=== PATIENT | female | born 1985 | race Caucasian/White ===

== ENCOUNTER 2017-03-08 19:42 | Emergency (ER) | payer OTHER ==
[~2017-03-08] VITALS: Ht 157.5 cm; Wt 59.0 kg
[~2017-03-08 19:42] MED LIST: CEPH-263 PO; HYDR-79 PO; POLY10DR OD
[2017-03-08 20:16] LABS: BILIRUBIN,URINE NEG (NEG); CLARITY,URINE CLOUDY; COLOR,URINE YELLOW; GLUCOSE,URINE NEG (NEG); NITRITE,URINE NEG (NEG); UROBILINOGEN,URINE 0.2 mg/dL (0.2 mg/dL)
[2017-03-08 20:24] LABS: BACTERIA,URINE MOD /HPF (0-FEW); SQUAMOUS EPITHELIAL CELL,UR MOD /LPF
[2017-03-08 20:30] VITALS: BP 103/44
[2017-03-08] MEDS ORDERED: FLUC150T PO (20:38)
[2017-03-08] MEDS ORDERED: CIPR500T PO (20:38)
[2017-03-08] MEDS ORDERED: PHEN-318 PO (20:38)
[2017-03-08] MEDS ORDERED: ACET325T9 PO (20:38)
--- NOTE | 2017-03-08 20:38 | PHYS DOC ---
Past History Past Medical History: Anxiety, Depression Past Surgical History: Other Additional Past Surgical Histo: breast augmentation Smoking: Cigarettes, Less than 1pk/day Alcohol Use: None Drug Use: None Adult General Chief Complaint Chief Complaint: PAIN ON URINATION [facility] HPI This is a pleasant otherwise healthy 31-year-old female who presents with dysuria urgency or frequency in spite of murmur intermittently for last 2 weeks. She came in today because the pain has also cause a little bit of hematuria that she was worried about. She has no passage of clot she doubts she is since she is on Depo-Provera although she is sexually active. She denies any other discharge or history of STD exposure. Patient denies any fever , back pain, chills, abdominal pain. She denies any headache or other systemic complaint. Patient's reason for not coming on earlier than 2 weeks ago is because she is on a very busy work schedule. She typically does not have time to get to the emergency department or another clinic the time she spit home with her child. Review of Systems Review of Systems Constitutional: Denies fever or chills [] Eyes: Denies change in visual acuity, redness, or eye pain [] HENT: Denies nasal congestion or sore throat [] Respiratory: Denies cough or shortness of breath [] Cardiovascular: No additional information not addressed in HPI [] GI: Denies abdominal pain, nausea, vomiting, bloody stools or diarrhea [] : Complains of dysuria urgency frequency and hematuria. Musculoskeletal: Denies back pain or joint pain [] Integument: Denies rash or skin lesions [] Neurologic: Denies headache, focal weakness or sensory changes [] Endocrine: Denies polyuria or polydipsia [] Allergies Allergies Allergies Coded Allergies Type Severity Reaction Last Updated Verified No Known Drug Allergies 01/28/15 No Physical Exam Physical Exam Vital signs reviewed all within normal limits. Constitutional: Well developed, well nourished, no acute distress, non-toxic appearance. [] Cardiovascular:Heart rate regular rhythm, no murmur [] Lungs & Thorax: Bilateral breath sounds clear to auscultation [] Abdomen: Bowel sounds normal, soft, no tenderness, no masses, no pulsatile masses. [] Back: No tenderness, no CVA tenderness. [] Neurologic: Alert and oriented X 3, Psychologic: Affect normal, judgement normal, mood normal. [] Current Patient Data Vital Signs Vital Signs Date Time Temp Pulse Resp B/P (MAP) Pulse Ox O2 Delivery O2 Flow Rate FiO2 03/08/17 19:42 98.2 95 18 98 Room Air Lab Results Laboratory Tests Test 03/08/17 19:46 03/08/17 20:09 Urine Collection Type Void Urine Color Yellow Urine Clarity Cloudy Urine pH 5.5 Urine Specific [place] >=1.030 Urine Protein Neg (NEG-TRACE) Urine Glucose (UA) Neg mg/dL (NEG) Urine Ketones (Stick) Neg mg/dL (NEG) Urine Blood Mod (NEG) Urine Nitrite Neg (NEG) Urine Bilirubin Neg (NEG) Urine Urobilinogen Dipstick 0.2 mg/dL (0.2 mg/dL) Urine Leukocyte Esterase Trace (NEG) Urine RBC 6-10 /HPF (0-2) Urine WBC 5-10 /HPF (0-4) Urine Squamous Epithelial Cells Mod /LPF Urine Bacteria Mod /HPF (0-FEW) Urine Mucus Mod /LPF POC Urine HCG, Qualitative hcg negative (Negative) EKG EKG [] Radiology/Procedures Radiology/Procedures [] Course & Med Decision Making Course & Med Decision Making Pertinent Labs and Imaging studies reviewed. (See chart for details) patient's urinalysis was reevaluated it revealed white blood cells, this finding in and of itself with her dysuria urgency and frequency would make me want to treat her as a clear UTI. Unfortunately she has also an epithelial contamination to her symptoms. She is not wanting to supply a new sample so I will treat her empirically with a course of ciprofloxacin. She is not actively . And she would also asked for dose of Diflucan as she typically gets y[place] infections with doses of antibiotics. At this point I doubt ectopic , ovarian cyst or torsion given duration of symptoms. Doubt kidney stones, pyelonephritis or cervicitis without discharge. Impression: Dysuria hematuria UTI. Disposition: PCP follow-up for routine care supplied a course of ciprofloxacin and Diflucan Pyridium and Tylenol. [] Dragon Disclaimer Dragon Disclaimer This chart was dictated in whole or in part using Voice Recognition software in a busy, high-work load, and often noisy Emergency Department environment. It may contain unintended and wholly unrecognized errors or omissions. Departure Departure: Impression: Primary Impression: UTI (urinary tract infection) Disposition: 01 HOME, SELF-CARE Condition: GOOD Referrals: KALIA MTZ JR, MD (PCP) Patient Instructions: Urinary Frequency, Urinary Tract Infection Additional Instructions: I would encourage her to quit smoking for your health and safety but the safety of your child. Please return for any new or increasing abdominal pain, increased frequency urgency and dysuria despite treatment or if you have any questions or concerns. Please use the Diflucan as prescribed after your course of antibiotics if you in fact develop a yeast infection this return for any new symptoms that he would like me to evaluate. Scripts Acetaminophen (TYLENOL) 325 Mg Tablet 1-2 TAB PO QID, #30 TAB 2 Refills Prov: CARLOS TORRE MD 03/08/17 Phenazopyridine Hcl (PYRIDIUM) 200 Mg Tablet 200 MG PO TID for 5 Days, #15 TAB Prov: CARLOS TORRE MD 03/08/17 Ciprofloxacin Hcl (CIPROFLOXACIN HCL) 500 Mg Tablet 1 TAB PO BID, #20 TAB Prov: CARLOS TORRE MD 03/08/17 Fluconazole (DIFLUCAN) 150 Mg Tablet 1 TAB PO ONCE, #1 TAB 1 Refill Prov: CARLOS TORRE MD 03/08/17 CARLOS TORRE MD Mar 08, 2017 20:38
== END 2017-03-08 20:44 | disposition home or self-care (01) ==
LOC: ER 19:42
DX: N39.0 Urinary tract infection, site not specified (principal); F17.210 Nicotine dependence, cigarettes, uncomplicated
CPT/HCPCS: 81001; 81025; 87086; 99284

== ENCOUNTER 2017-04-07 12:00 | Emergency (ER) | payer OTHER ==
[~2017-04-07] VITALS: Ht 157.5 cm; Wt 54.4 kg
[~2017-04-07 12:00] MED LIST changes: +ACET325T9 PO; +CIPR500T PO; +FLUC150T PO; +PHEN-318 PO
[2017-04-07 12:13] VITALS: BP 112/79
[2017-04-07] MEDS ORDERED: IBUPROFEN 600 MG TABLET. PO ONE (13:00)
[2017-04-07] MEDS ORDERED: CYCLOBENZAPRINE 10 MG TABLET. PO ONE (13:00)
[2017-04-07] MEDS ORDERED: HYDROcodone/APAP 5/325MG 1 TAB TABLET PO ONE (13:00)
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
== END 2017-04-07 12:42 | disposition home or self-care (01) ==
LOC: ER 12:00
DX: S06.0X0A Concussion without loss of consciousness, initial encounter (principal); S13.4XXA Sprain of ligaments of cervical spine, initial encounter; F17.210 Nicotine dependence, cigarettes, uncomplicated; V43.52XA Car driver injured in collision with other type car in traffic accident, initial encounter; Y93.89 Activity, other specified; Y99.8 Other external cause status; Y92.89 Other specified places as the place of occurrence of the external cause
CPT/HCPCS: 99284

== ENCOUNTER 2017-06-07 14:45 | Emergency (ER) | payer OTHER ==
[~2017-06-07] VITALS: Ht 160 cm; Wt 59.9 kg
--- NOTE | 2017-06-07 15:12 | ED.ADGEN ---
Past History Past Medical History: Anxiety Past Medical History Frequent urinary tract infections Past Surgical History: Other Additional Past Surgical Histo: breast augmentation Smoking: Cigarettes, Less than 1pk/day Alcohol Use: None Drug Use: None Adult General HPI HPI This is a pleasant 32-year-old female who presents emergency Department with 2.5 weeks of diarrhea. 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 The patient reports she's been having nausea with small amounts of emesis up into her mouth with a very foul taste. Patient also reports reports frequent episodes of belching. The patient reports that she's been on frequent antibiotics for urinary tract infections. The patient reports she was just recently on ciprofloxacin. The patient currently rates her abdominal pain is 9- 10 distress that is periumbilical and suprapubic. The patient does not have a primary care physician. The patient reports that the [facility] centers where she gets her medications prescribed. The patient's currently on Depo-Provera that she does not have regular periods. The patient's mother to medications are clonazepam and lorazepam. Review of Systems Review of Systems Constitutional: Denies fever or chills [] Eyes: Denies change in visual acuity, redness, or eye pain [] HENT: Denies nasal congestion or sore throat [] Respiratory: Denies cough or shortness of breath [] Cardiovascular: No additional information not addressed in HPI [] GI: The patient complains of abdominal pain and nausea the patient reports multiple episodes of emesis in her mouth. The patient reports multiple episodes of diarrhea but with greater than 10 in the past 24 hours the patient denies hematemesis hematochezia and melena.[] : Denies dysuria or hematuria [] Musculoskeletal: Denies back pain or joint pain [] Integument: Denies rash or skin lesions [] Neurologic: Denies headache, focal weakness or sensory changes [] Endocrine: Denies polyuria or polydipsia [] Current Medications Current Medications Current Medications Medications (Trade) Dose Ordered Sig/Julio Start Time Stop Time Status Last Admin Dose Admin Morphine Sulfate (Morphine 4mg Syringe) 4 mg PRN Q15MIN PRN 06/07/17 15:15 06/08/17 15:14 06/07/17 15:40 4 MG Ondansetron HCl (Zofran) 8 mg 1X ONCE 06/07/17 15:15 06/07/17 15:16 DC 06/07/17 15:15 8 MG Sodium Chloride 1,000 ml @ 1,000 mls/hr 1X ONCE 06/07/17 15:15 06/07/17 16:14 DC 06/07/17 15:15 1,000 MLS/HR Allergies Allergies Allergies Coded Allergies Type Severity Reaction Last Updated Verified No Known Drug Allergies 04/07/17 No Physical Exam Physical Exam Constitutional: Well developed, well nourished, no acute distress, non-toxic appearance. [] HENT: Normocephalic, atraumatic, bilateral external ears normal, oropharynx dry , no oral exudates, nose normal. [] Eyes: PERRLA, EOMI, conjunctiva normal, no discharge. [] Neck: Normal range of motion, no tenderness, supple, no stridor. [] Cardiovascular:Heart rate regular rhythm, no murmur [] Lungs & Thorax: Bilateral breath sounds clear to auscultation [] Abdomen: Bowel sounds normal, soft, periumbilical and suprapubic abdominal tenderness without guarding or rebound, no tenderness in McBurney's point, no tenderness in the epigastric region and tenderness along the costal margins bilaterally, no masses, no pulsatile masses. [] Skin: Warm, dry, no erythema, no rash. [] Back: No tenderness, no CVA tenderness. [] Extremities: No tenderness, no cyanosis, no clubbing, ROM intact, no edema. [] Neurologic: Alert and oriented X 3, normal motor function, normal sensory function, no focal deficits noted. [] Psychologic: judgement normal, the patient appears anxious.. [] Current Patient Data Vital Signs Vital Signs Date Time Temp Pulse Resp B/P (MAP) Pulse Ox O2 Delivery O2 Flow Rate FiO2 06/07/17 17:00 54 18 114/62 (79) 95 Room Air 06/07/17 14:45 98.5 Lab Results Laboratory Tests Test 06/07/17 15:20 06/07/17 15:47 White Blood Count 10.9 x10^3/uL (4.0-11.0) Red Blood Count 4.74 x10^6/uL (3.50-5.40) Hemoglobin 14.9 g/dL (12.0-15.5) Hematocrit 43.8 % (36.0-47.0) Mean Corpuscular Volume 92 fL (79-100) Mean Corpuscular Hemoglobin 31 pg (25-35) Mean Corpuscular Hemoglobin Concent 34 g/dL (31-37) Red Cell Distribution Width 13.2 % (11.5-14.5) Platelet Count 228 x10^3/uL (140-400) Neutrophils (%) (Auto) 69 % (31-73) Lymphocytes (%) (Auto) 24 % (24-48) Monocytes (%) (Auto) 5 % (0-9) Eosinophils (%) (Auto) 1 % (0-3) Basophils (%) (Auto) 1 % (0-3) Neutrophils # (Auto) 7.5 x10^3uL (1.8-7.7) Lymphocytes # (Auto) 2.7 x10^3/uL (1.0-4.8) Monocytes # (Auto) 0.5 x10^3/uL (0.0-1.1) Eosinophils # (Auto) 0.1 x10^3/uL (0.0-0.7) Basophils # (Auto) 0.1 x10^3/uL (0.0-0.2) Urine Collection Type Clean catch Urine Color Yellow Urine Clarity Hazy Urine pH 6.5 Urine Specific Emblem 1.020 Urine Protein Neg (NEG-TRACE) Urine Glucose (UA) Neg mg/dL (NEG) Urine Ketones (Stick) Neg mg/dL (NEG) Urine Blood Trace (NEG) Urine Nitrite Neg (NEG) Urine Bilirubin Neg (NEG) Urine Urobilinogen Dipstick 0.2 mg/dL (0.2 mg/dL) Urine Leukocyte Esterase Neg (NEG) Urine RBC 1-2 /HPF (0-2) Urine WBC 1-4 /HPF (0-4) Urine Squamous Epithelial Cells Mod /LPF Urine Bacteria Mod /HPF (0-FEW) Urine Mucus Mod /LPF Sodium Level 139 mmol/L (136-145) Potassium Level 4.5 mmol/L (3.5-5.1) Chloride Level 107 mmol/L (98-107) Carbon Dioxide Level 25 mmol/L (21-32) Anion Gap 7 (6-14) Blood Urea Nitrogen 16 mg/dL (7-20) Creatinine 0.9 mg/dL (0.6-1.0) Estimated GFR (Cockcroft-Gault) 73.5 BUN/Creatinine Ratio 18 (6-20) Glucose Level 108 mg/dL (70-99) H Calcium Level 9.5 mg/dL (8.5-10.1) Total Bilirubin 0.1 mg/dL (0.2-1.0) L Aspartate Amino Transferase (AST) 19 U/L (15-37) Alanine Aminotransferase (ALT) 26 U/L (14-59) Alkaline Phosphatase 100 U/L (46-116) Total Protein 8.1 g/dL (6.4-8.2) Albumin 4.3 g/dL (3.4-5.0) Albumin/Globulin Ratio 1.1 (1.0-1.7) POC Urine HCG, Qualitative hcg negative (Negative) EKG EKG [] Radiology/Procedures Radiology/Procedures [] Course & Med Decision Making Course & Med Decision Making Pertinent Labs and Imaging studies reviewed. (See chart for details) Rechecked the patient at 5:50pm and she reports that her pain and nausea as well as diarrhea are resolved. The patient had no vomiting during her emergency department evaluation. Patient adamant that she can't wait any longer to have a bowel movement for us with a sample for C. difficile. The patient is highly concerned that she may have questioned Fracisco enterocolitis is given her great anxiety. We discussed options for returning with a stool sample versus being rechecked in the emergency department in a number of days. The patient was very happy with both these options. I offered to provide the prescription for metronidazole and treat presumptively. The patient was comfortable with this plan of long list of prescription for Diflucan was also provided so that she can take it at the end of her out of antibiotics to prevent a yeast infection. The patient verbalized the understanding of the need for close outpatient follow -up.[] Final Impression Final Impression Abdominal pain, nausea, vomiting, diarrhea, dehydration, anxiety[] Problems: Dragon Disclaimer Dragon Disclaimer This electronic medical record was generated, in whole or in part, using a voice recognition dictation system. JUDY CROOK MD Jun 07, 2017 15:12
[2017-06-07] MEDS ORDERED: MORPHINE SULFATE 4 MG/ML DISP.SYRIN. IV/SQ PRN (15:15)
[2017-06-07] MEDS ORDERED: IV NORMAL SALINE 1,000ML 1,000 ML IV ONE (15:15)
[2017-06-07] MEDS ORDERED: ONDANSETRON PF 4 MG/2 ML VIAL. IV ONE (15:15)
[2017-06-07 15:37] LABS: BASO # 0.1 x10^3/uL (0.0-0.2); BASO % 1 % (0-3); EOS # 0.1 x10^3/uL (0.0-0.7); EOS % 1 % (0-3); HEMATOCRIT 43.8 % (36.0-47.0); HEMOGLOBIN 14.9 g/dL (12.0-15.5); LYMPH # 2.7 x10^3/uL (1.0-4.8); LYMPH % 24 % (24-48); MEAN CORPUSCULAR HEMOGLOBIN 31 pg (25-35); MEAN CORPUSCULAR HGB CONC 34 g/dL (31-37); MEAN CORPUSCULAR VOLUME 92 fL (79-100); MONO # 0.5 x10^3/uL (0.0-1.1); MONO % 5 % (0-9); NEUT # 7.5 x10^3uL (1.8-7.7); NEUT % 69 % (31-73); PLATELET COUNT 228 x10^3/uL (140-400); RED BLOOD COUNT 4.74 x10^6/uL (3.50-5.40); RED CELL DISTRIBUTION WIDTH 13.2 % (11.5-14.5); WHITE BLOOD COUNT 10.9 x10^3/uL (4.0-11.0)
[2017-06-07 15:48] LABS: BACTERIA,URINE MOD /HPF (0-FEW); BILIRUBIN,URINE NEG (NEG); CLARITY,URINE HAZY; COLOR,URINE YELLOW; GLUCOSE,URINE NEG (NEG); NITRITE,URINE NEG (NEG); SQUAMOUS EPITHELIAL CELL,UR MOD /LPF; UROBILINOGEN,URINE 0.2 mg/dL (0.2 mg/dL)
[2017-06-07 15:52] LABS: ALBUMIN 4.3 g/dL (3.4-5.0); ALBUMIN/GLOBULIN RATIO 1.1 (1.0-1.7); CALCIUM 9.5 mg/dL (8.5-10.1); CREATININE 0.9 mg/dL (0.6-1.0); GFR 73.5; POTASSIUM 4.5 mmol/L (3.5-5.1); TOTAL BILIRUBIN 0.1 mg/dL (0.2-1.0); TOTAL PROTEIN 8.1 g/dL (6.4-8.2)
[2017-06-07 17:00] VITALS: BP 114/62
[2017-06-07] MEDS ORDERED: METR500T PO (17:08)
[2017-06-07] MEDS ORDERED: FLUC150T PO (17:08)
[2017-06-07] MEDS ORDERED: HYDR-971 PO (17:19)
== END 2017-06-07 17:20 | disposition home or self-care (01) ==
LOC: ER 14:45
DX: R10.33 Periumbilical pain (principal); E86.0 Dehydration; R11.2 Nausea with vomiting, unspecified; R19.7 Diarrhea, unspecified; F41.9 Anxiety disorder, unspecified; F17.210 Nicotine dependence, cigarettes, uncomplicated
CPT/HCPCS: 36415; 80053; 81001; 81025; 85025; 87086; 96361; 96374; 96375; 99285; J2270; J2405; J7030

== ENCOUNTER 2018-07-16 15:58 | Emergency (ER) | payer OTHER ==
[~2018-07-16 15:58] MED LIST changes: +HYDR-971 PO; +METR500T PO
[2018-07-16] MEDS ORDERED: KETOROLAC 60 MG/2 ML VIAL. IM ONE (16:45)
[2018-07-16] MEDS ORDERED: HYDR-971 PO (17:00)
[2018-07-16] MEDS ORDERED: CYCL-331 PO (17:00)
[2018-07-16] MEDS ORDERED: NAPR-683 PO (17:00)
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
[2018-07-16 17:24] VITALS: BP 109/61
== END 2018-07-16 17:31 | disposition home or self-care (01) ==
LOC: ER 15:58
DX: S80.02XA Contusion of left knee, initial encounter (principal); S80.01XA Contusion of right knee, initial encounter; S50.02XA Contusion of left elbow, initial encounter; S50.01XA Contusion of right elbow, initial encounter; F17.210 Nicotine dependence, cigarettes, uncomplicated; Z71.6 Tobacco abuse counseling; V98.8XXA Other specified transport accidents, initial encounter; Y93.89 Activity, other specified; Y92.89 Other specified places as the place of occurrence of the external cause; Y99.8 Other external cause status
CPT/HCPCS: 96372; 99283; J1885

== ENCOUNTER 2018-09-16 20:30 | Emergency (ER) | payer OTHER ==
[~2018-09-16 20:30] MED LIST changes: +CYCL-331 PO; +HYDR-1179 PO; +HYDR-3165 PO; -HYDR-79 PO; -HYDR-971 PO; +NAPR-683 PO
[2018-09-16 20:54] VITALS: BP 155/74
--- NOTE | 2018-09-16 21:13 | PHYS DOC ---
Past History Past Medical History: No Pertinent History Past Surgical History: No Surgical History Additional Past Surgical Histo: breast augmentation Smoking: Cigarettes, Less than 1pk/day Alcohol Use: None Drug Use: None Adult General Chief Complaint Chief Complaint: NAUSEA/VOMITING/DIARRHEA HPI HPI Patient is a 33 year old female who presents with complaint of nausea, vomiting , and diarrhea. Patient states her symptoms started 3 days ago. Patient states that she initially had a few episodes of vomiting. Patient states that she has not had any further vomiting over the last 2 days, however she has started to have numerous loose stools. Patient states that her son has had similar symptoms. Denies any fevers. Has not taken any medications for her symptoms. Patient states overall she feels like she has improved but is still having the diarrhea at this time. Patient states that she works 3 jobs and she was advised to be evaluated by a medical professional from her work before returning. Review of Systems Review of Systems Constitutional: Denies fever or chills [] Eyes: Denies change in visual acuity, redness, or eye pain [] HENT: Sore throat, postnasal drip[] Respiratory: Denies cough or shortness of breath [] Cardiovascular: Denies chest pain or edema[] GI: Nausea, vomiting, diarrhea, denies abdominal pain[] : Denies dysuria or hematuria [] Musculoskeletal: Denies back pain or joint pain [] Integument: Denies rash or skin lesions [] Neurologic: Denies headache, focal weakness or sensory changes [] All other systems were reviewed and found to be within normal limits, except as documented in this note. Allergies Allergies Allergies Coded Allergies Type Severity Reaction Last Updated Verified No Known Drug Allergies 04/07/17 No Physical Exam Physical Exam Constitutional: Well developed, well nourished, no acute distress, non-toxic appearance. [] HENT: Normocephalic, atraumatic, bilateral external ears normal, oropharynx erythematous, posterior frontal cobblestoning consistent with postnasal drip, no oral exudates, nose normal. [] Eyes: PERRLA, EOMI, conjunctiva normal, no discharge. [] Neck: Normal range of motion, no tenderness, mild anterior cervical lymphadenopathy present, no stridor. [] Cardiovascular:Heart rate regular rhythm, no murmur [] Lungs & Thorax: Bilateral breath sounds clear to auscultation [] Abdomen: Bowel sounds normal, soft, no tenderness, no masses, no pulsatile masses. [] Skin: Warm, dry, no erythema, no rash. [] Back: No tenderness, no CVA tenderness. [] Extremities: No tenderness, no cyanosis, no clubbing, ROM intact, no edema. [] Neurologic: Alert and oriented X 3, normal motor function, normal sensory function, no focal deficits noted. [] Current Patient Data Vital Signs Vital Signs Date Time Temp Pulse Resp B/P (MAP) Pulse Ox O2 Delivery O2 Flow Rate FiO2 09/16/18 20:54 98.2 119 24 100 Room Air Lab Results Rapid strep test: Negative EKG EKG Not performed[] Radiology/Procedures Radiology/Procedures Not performed[] Course & Med Decision Making Course & Med Decision Making Pertinent Labs and Imaging studies reviewed. (See chart for details) Patient's symptoms appear consistent with viral gastroenteritis. Patient appears well at this time. Patient provided reassurance that symptoms are expected to improve over the next 2 days. Recommended increased fluid intake to help prevent dehydration. Recommended follow-up with primary doctor in 3 days for reevaluation and return to emergency department for any worsening symptoms. Patient was understanding and in agreement with treatment plan.[] Dragon Disclaimer Dragon Disclaimer This electronic medical record was generated, in whole or in part, using a voice recognition dictation system. Departure Departure: Impression: Primary Impression: Viral gastroenteritis Disposition: HOME, SELF-CARE Condition: IMPROVED Referrals: PCP,NO (PCP) Patient Instructions: Viral Gastroenteritis Additional Instructions: Follow-up the primary doctor in 3 days for reevaluation. Return to the emergency department for any worsening symptoms. JESSICA WILHELM MD Sep 16, 2018 21:13
== END 2018-09-16 21:18 | disposition home or self-care (01) ==
LOC: ER 20:30
DX: A08.4 Viral intestinal infection, unspecified (principal); F17.210 Nicotine dependence, cigarettes, uncomplicated
CPT/HCPCS: 87070; 87880; 99283

== ENCOUNTER 2021-10-31 16:24 | Emergency (ER) | payer OTHER ==
[~2021-10-31] VITALS: Ht 157.5 cm; Wt 71.0 kg
[~2021-10-31 16:24] MED LIST changes: -CIPR500T PO; +CIPR500T2 PO; -CYCL-331 PO; +CYCL10TA19 PO
[2021-10-31 16:34] VITALS: BP 138/85
[2021-10-31] MEDS ORDERED: AMOXICILLIN/K CLAV 875/125MG TABLET. PO ONE (16:45)
[2021-10-31] MEDS ORDERED: traMADol 50 MG TABLET PO ONE (16:45)
[2021-10-31] MEDS ORDERED: TRAM50TA PO (17:04)
[2021-10-31] MEDS ORDERED: CHLO473M5 MM (17:04)
[2021-10-31] MEDS ORDERED: AMOX1TAB11 PO (17:04)
--- NOTE | 2021-10-31 17:08 | PHYS DOC ---
Past History Past Medical History: No Pertinent History Additional Past Surgical Histo: breast augmentation Smoking: Cigarettes, Less than 1pk/day Alcohol Use: None Drug Use: None General Adult EDM: Chief Complaint: DENTAL PROBLEM HPI: HPI: Patient is a 36 year old female who presents with two day history of dental pain. Patient reports she had a filling "fall out" of her left upper rear dentition almost two weeks ago. She did not have any associated pain at that time. Last night, she noticed pain and this morning, her left cheek was swollen. She denies fever, chills, purulent discharge in her mouth, foul taste, chest pain, palpitations. Review of Systems: Review of Systems: ROS negative or noncontributory except as mentioned in HPI. Current Medications: Current Meds: Current Medications Medications (Trade) Dose Ordered Sig/Julio Start Time Stop Time Status Last Admin Dose Admin Amoxicillin/ Clavulanate Potassium (Augmentin 875/ 125mg) 1 tab 1X ONCE 10/31/21 16:45 10/31/21 16:46 DC Tramadol HCl (Ultram) 50 mg 1X ONCE 10/31/21 16:45 10/31/21 16:46 DC Allergies: Allergies: Allergies Coded Allergies Type Severity Reaction Last Updated Verified No Known Drug Allergies 10/31/21 No Physical Exam: PE: Constitutional: Well developed, well nourished, no acute distress, non-toxic appearance. HENT: Left cheek with significant swelling extending from the angle of the mandible to the lower orbit without periorbital swelling, bilateral external ears normal, oropharynx moist, no oral exudates, poor dentition, no oral mucosa exudates or open wounds, nose normal. Eyes: PERRLA, EOMI, conjunctiva normal, no discharge, no periorbital edema. Neck: Normal range of motion, left-sided submandibular, tonsillar and anterior cervical lymphadenopathy, no stridor. Skin: Warm, dry, no erythema, no rash. Extremities: No tenderness, no cyanosis, no clubbing, ROM intact, no edema. Neurologic: Alert and oriented x4, steady and symmetrical upright gait, no focal deficits noted. Current Patient Data: Vital Signs: Vital Signs Date Time Temp Pulse Resp B/P (MAP) Pulse Ox O2 Delivery O2 Flow Rate FiO2 10/31/21 16:34 97.9 97 18 138/85 (102) 98 Heart Score: C/O Chest Pain: No Course & Med Decision Making: Course & Med Decision Making Pertinent Labs and Imaging studies reviewed. (See chart for details) Patient presents to the emergency department with dental pain that began yes terday. She does report a filling fell out almost 2 weeks ago. Patient will be provided with antibiotic as well as pain medication. Stressed the importance of obtaining dental follow-up care, as they are the only ones who can provide a permanent treatment that will provide relief. Counseled patient on frequency of dental infections passing to the heart. Return precautions were provided. Patient understands and is agreeable to discharge plan. Dragon Disclaimer: [employer] Disclaimer: This electronic medical record was generated, in whole or in part, using a voice recognition dictation system. Departure Departure: Impression: Primary Impression: Dental abscess Disposition: HOME / SELF CARE / HOMELESS Condition: STABLE Referrals: PCP,NO (PCP) Patient Instructions: Dental Abscess, Dental Caries Additional Instructions: EMERGENCY DEPARTMENT GENERAL DISCHARGE INSTRUCTIONS Thank you for coming to [facility] (ED) today and trusting us with you care. We trust that you had a positive experience in our Emergency Department. If you wish to speak to the department management, you may call the director at [phone]. YOUR FOLLOW UP INSTRUCTIONS ARE FOLLOWS: 1. Follow up with your primary care doctor. If you do not have a primary doctor, please ask for a resource list of physicians or clinics that may be able to assist you with follow up care. 2. The emergency provider has interpreted your imaging studies, if any were ordered. The radiology medical reimbursement specialist also reviewed them. If there is a change in the findings, you will be notified in 48 hours when at all possible. 3. If a lab test or culture has been done, your results will be reviewed and you will be notified if you need a change in treatment. 4. Follow instructions verbalized to you and refer to the printouts if needed. ADDITIONAL INSTRUCTIONS AND INFORMATION: 1. Your care today has been supervised by a physician who is specially trained in emergency care. Many problems require more than one evaluation for a complete diagnosis and treatment. We recommend that you schedule your follow up appointment as recommended to ensure complete treatment of you illness or injury. If you are unable to obtain follow up care and continue to have a problem, or if your condition worsens, we recommend that you return to the ED. 2. We are not able to safely determine your condition over the phone nor are we able to give sound medical advice over the phone. For these safety reasons, if you call for medical advice we will ask you to come to the ED for further evaluation. 3. If you have any questions regarding these discharge instructions please call the ED at [phone]. SAFETY INFORMATION: In the interest of safety, wellness, and injury prevention; we encourage you to wear your seat belt, if you smoke; quite smoking, and we encourage family to use a protective helmet for bicycling and other sporting events that present an increased risk for head injury. IF YOUR SYMPTOMS WORSEN OR NEW SYMPTOMS DEVELOP, OR YOU HAVE CONCERNS ABOUT YOUR CONDITION; OR IF YOUR CONDITION WORSENS WHILE YOU ARE WAITING FOR YOUR FOLLOW UP APPOINTMENT; EITHER CONTACT YOUR PRIMARY CARE DOCTOR, THE PHYSICIAN WHOSE NAME AND NUMBER YOU WERE GIVEN, OR RETURN TO THE ED IMMEDIATELY. Scripts Amoxicillin/Potassium Clav (AMOX TR-K CLV 875-125 MG TAB) 1 Each Tablet 1 TAB PO BID for dental abscess, #19 TAB Prov: KRISTA POND 10/31/21 Tramadol Hcl (TRAMADOL HCL) 50 Mg Tablet 50 MG PO PRN Q6HRS PRN for PAIN, #12 TAB Prov: KRISTA POND 10/31/21 Chlorhexidine Gluconate (Paroex) 473 Ml Mouthwash 473 ML MM TID PRN PRN for ORAL PAIN, #1 BOTTLE Prov: KRISTA POND 10/31/21 KRISTA POND Oct 31, 2021 17:08
== END 2021-10-31 17:19 | disposition home or self-care (01) ==
LOC: ER 16:24
DX: K04.7 Periapical abscess without sinus (principal); F17.210 Nicotine dependence, cigarettes, uncomplicated
CPT/HCPCS: 99283